=== PATIENT | female | born 1975 | race Caucasian/White ===

== ENCOUNTER 2022-03-17 10:22 | Outpatient (REF) | payer BC, SELFPAY ==
--- NOTE | ~2022-03-17 | MM_ITS ---
EXAMINATION: MM SCREENING DIGITAL BREAST TOMOSYNTHESIS, BILATERAL CLINICAL INFORMATION: Screening. Asymptomatic. The lifetime risk of breast cancer based on the Tyrer-Cuzick Model is 6%. COMPARISON: Mammography: 03/21/2020, 10/18/2018, 09/09/2017 TECHNIQUE: Digital breast tomosynthesis is performed in both the craniocaudal and mediolateral oblique views along with computer-aided detection (CAD). Synthesized 2D images are generated from the tomosynthesis. FINDINGS: There are scattered areas of fibroglandular density (ACR BI-RADS breast composition Category b). There are no significant masses, abnormal calcifications, or other abnormalities. Parenchymal pattern is similar to prior studies. Breast tissue composition borders on heterogeneously dense. The axilla and skin contours are unremarkable. There are some grouped dermal calcifications again seen mid lower inner right breast. MM/MM tomosynthesis screening BI IMPRESSION: No mammographic evidence of malignancy. ASSESSMENT: BI-RADS 2: Benign RECOMMENDATION: Routine annual mammography screening. This patient's information was entered into a reminder system with a target due date for their next mammogram.
== END 2022-03-17 10:23 | disposition home or self-care (01) ==
LOC: HO.MAMMO 10:22
PROVIDERS: PCP Internal Medicine; Visit Provider Internal Medicine
DX: Z12.31 Encounter for screening mammogram for malignant neoplasm of breast (principal)
CPT/HCPCS: 77063; 77067

== ENCOUNTER 2022-08-06 | Outpatient (REF) | payer BC, SELFPAY | END 2022-08-06 00:01 | disposition home or self-care (01) | LOC: HO.LNP | PROVIDERS: Visit Provider Emergency Medicine | DX: R30.0 Dysuria (principal) | CPT/HCPCS: 87086; 87088; 87186 ==

== ENCOUNTER 2022-08-27 09:34 | Outpatient (REF) | payer BC, SELFPAY ==
[2022-08-27 11:16] LABS: MANUAL DIFF FLAG NO
[2022-08-27 11:24] LABS: Basophils Absolute Auto 0.1 X10*3/uL (0.0-0.2); Basophils Percent Auto 0.9 % (0-2); Eosinophils Absolute Auto 0.2 X10*3/uL (0.0-0.4); Eosinophils Percent Auto 2.7 % (0-4); Imm Gran Abs Auto 0.02 X10*3/uL (0.00-0.03); Imm Gran Pct Auto 0.3 % (0.0-0.4); Lymphocytes Absolute Auto 1.3 X10*3/uL (1.2-4.9); Lymphocytes Percent Auto 21.9 % (20-40); Mean Corpuscular Volume 69.9 fL (80.0-98.0); Mean Platelet Volume 10.4 fL (9.4-12.3); Monocytes Absolute Auto 0.4 X10*3/uL (0.1-1.2); Monocytes Percent Auto 7.4 % (2-11); Neutrophils Absolute Auto 3.9 x10*3/uL (2.0-8.3); Neutrophils Percent Auto 66.8 % (45-73); Platelet Count 333 X10*3/uL (160-400); Red Blood Count 4.29 X10*6/uL (4.20-5.50); Red Cell Distribution Width 17.4 % (11.0-16.0); White Blood Count 5.8 X10*3/uL (4.8-10.8)
[2022-08-27 11:39] LABS: Appearance Urine Clear; Color Urine Yellow; Glucose Urine UA Negative (Negative); Leukocyte Esterase Urine Negative (Negative); Nitrite Urine Negative (Negative); Specific Gravity - Urine >= 1.030 (1.005-1.025); Urine Blood Negative (Negative); Urine Ketones Negative (Negative); Urine Protein Negative (Neg-Trace)
[2022-08-27 12:01] LABS: Anion Gap 11 (12-20); Blood Urea Nitrogen 13 mg/dL (9-16); Calcium 8.9 mg/dL (8.4-10.2); Carbon Dioxide 23 mmol/L (22-29); Chloride 108 mmol/L (96-108); Cholesterol 158 mg/dL; Estimated Glomerular Filt Rate > 60; Glucose Fasting 101 mg/dL (60-99); HDL Cholesterol 40 mg/dL; LDL Cholesterol Calculated 95 mg/dl; Potassium 4.2 mmol/L (3.3-5.1); Sodium 138 mmol/L (135-145); Triglycerides 119 mg/dL
== END 2022-08-27 09:35 | disposition home or self-care (01) ==
LOC: HO.HMGCLDS 09:34
PROVIDERS: PCP Internal Medicine; Visit Provider Internal Medicine
DX: Z00.01 Encounter for general adult medical examination with abnormal findings (principal)
CPT/HCPCS: 36415; 80048; 80061; 81003; 82306; 84443; 85025

== ENCOUNTER 2023-03-14 09:10 | Outpatient (REF) | payer BC, SELFPAY ==
[2023-03-14 12:00] LABS: MANUAL DIFF FLAG NO
[2023-03-14 12:16] LABS: Basophils Absolute Auto 0.1 X10*3/uL (0.0-0.2); Basophils Percent Auto 0.9 % (0-2); Eosinophils Absolute Auto 0.1 X10*3/uL (0.0-0.4); Eosinophils Percent Auto 1.4 % (0-4); Hematocrit 35.9 % (37.0-47.0); Hemoglobin 12.1 g/dl (12.0-16.0); Imm Gran Abs Auto 0.02 X10*3/uL (0.00-0.03); Imm Gran Pct Auto 0.3 % (0.0-0.4); Lymphocytes Absolute Auto 1.3 X10*3/uL (1.2-4.9); Lymphocytes Percent Auto 19.1 % (20-40); Mean Corpuscular HGB Conc 33.7 g/dl (31.0-35.0); Mean Corpuscular Volume 80.1 fL (80.0-98.0); Monocytes Absolute Auto 0.7 X10*3/uL (0.1-1.2); Monocytes Percent Auto 9.3 % (2-11); Neutrophils Absolute Auto 4.9 x10*3/uL (2.0-8.3); Platelet Count 294 X10*3/uL (160-400); Red Blood Count 4.48 X10*6/uL (4.20-5.50); Red Cell Distribution Width 17.8 % (11.0-16.0)
[2023-03-14 12:37] LABS: Iron 50 mcg/dL (30-160); Percent Iron Saturation 14 % (15-50); Total Iron Binding Capacity 363 mcg/dL (228-428); Unsaturated Iron Binding 313 ug/dL
[2023-03-14 12:59] LABS: Vitamin D 25-OH Total 49.9 ng/mL (>30)
== END 2023-03-14 09:11 | disposition home or self-care (01) ==
LOC: HO.HMGCLDS 09:10
PROVIDERS: PCP Internal Medicine; Visit Provider Internal Medicine
DX: D50.9 Iron deficiency anemia, unspecified (principal); E55.9 Vitamin D deficiency, unspecified
CPT/HCPCS: 36415; 82306; 83540; 85025

== ENCOUNTER 2023-03-18 13:04 | Outpatient (AMB) | payer BC, SELFPAY ==
[2023-03-18 13:09] VITALS: BP 102/62; PULSE 87; O2SAT 98; BMI 31.5
--- NOTE | 2023-03-18 13:09 | MHC.PC.OV ---
Vital Signs 03/18/23 13:09 Height 4 ft 11 in Weight 156 lb BMI 31.5 BP 102/62 Blood Pressure Location Lt brachial Position Sitting Pulse 87 Pulse Source Pulse Oximeter Pulse Oximetry (%) 98 Intake Visit Reasons: f/u anemia Intake Note: pt is here for f/u anemia Allergies codeine Allergy (Unknown, Verified 03/18/23 13:14) hives dextromethorphan Allergy (Unknown, Verified 03/18/23 13:14) hives, jumpy legs diphenhydramine [From Benadryl] Allergy (Unknown, Verified 03/18/23 13:14) hives, swelling throat Codeine Phosphate Allergy (Unknown, Uncoded 03/18/23 13:14) hives Benadryl Adverse Reaction (Unknown, Uncoded 03/18/23 13:14) hives , swelling throat Decongestant Adverse Reaction (Unknown, Uncoded 03/18/23 13:14) hives Medication List - Last Reconciled 03/18/23 by Staci Warren MD cholecalciferol (vitamin D3) 50 mcg PO DAILY docusate sodium 100 mg PO DAILY ferrous sulfate 325 mg PO DAILY Tobacco use date assessed: 12/17/22 Dental Screening Dental Screen Date: 03/18/23 Did you have a dental visit in the last 12 months?: Yes Did you have a dental problem in the last 6 months where you did not have access to dental care?: No Was dental information given to patient?: Patient has dentist HPI f/u anemia HPI Details 47-year-old lady with microcytic hyperchromic anemia, here today for follow-up. Has been taking her iron, forgets to take her dose sometimes, complaining of constipation when taking it. Her latest labs however showed marked improvement in her iron levels and resolution of anemia. Still having heavy periods specially during the 1st couple of days, but denies any abdominal cramping during her cycle. She has been feeling well with no complaints of headache, no lightheadedness, no shortness of breath, fatigue or chest pain [facility] Medical History (Updated 03/21/23 @ 01:54 by Staci Warren MD) Hallux valgus (acquired), left foot History of anemia History of vitamin D deficiency Obesity Plantar fasciitis, right Subcutaneous nodules Vitamin D deficiency Surgical History History of foot surgery Family History Father Arthritis Substance use disorder Mother Skin cancer Fibromyalgia Substance use disorder Maternal Grandmother Fibromyalgia Skin cancer Alzheimer's disease Dementia Maternal Grandfather No problems noted. Paternal Grandfather No problems noted. Maternal Aunt Fibromyalgia Skin cancer Breast cancer Ovarian cancer Brother Substance use disorder Brother Substance use disorder Daughter No problems noted. Social History Housing: House Alcohol intake: never Patient Tobacco Use Status: Former Tobacco user e-Cigarette/Vaping Use: Never Used service: No Current occupational status: employed Cognitive needs: No Hearing needs: No Vision needs: Yes Female Reproductive History Menstrual Age of Menarche: 17 Questionnaire Thrive Questionnaire Date Thrive assessed: 08/24/22 BONY-7 AMB Questionnaire BONY-7 Date BONY - 7 assessed: 08/24/22 Source: Developed by Drs. Anthony Martins, Sinai Costello, Huber Aleman and colleagues, with an educational mi from [employer]. Review of Systems Const Reports no additional complaints Eyes Reports no additional complaints ENT Reports no additional complaints Resp Reports no additional complaints GI Reports as per HPI and Reports no additional complaints Reports no additional complaints Neuro Reports no additional complaints Physical exam (Primary Care) Vital Signs: Last Vital Signs Pulse 87 03/18/23 13:09 BP 102/62 03/18/23 13:09 Pulse Ox 98 03/18/23 13:09 BMI result Body Mass Index 31.5 Tobacco/Smoking Status: Tobacco use Status Tobacco use date assessed 12/17/22 03/18/23 13:10 Patient Tobacco Use Status Former Tobacco user 03/18/23 13:10 e-Cigarette/Vaping Use Never Used 03/18/23 13:10 Thrive Assessment: Date of Thrive Assessment Date Thrive assessed 08/24/22 03/18/23 13:10 Const General: comfortable and alert Nutritional Appearance: obese Orientation/consciousness: patient oriented x3 HENMT Head: Yes normocephalic Ears: external ears normal Face and sinus: Yes face symmetric Mouth: Normal oral and palatal mucosa present and moist mucous membranes Eyes General: appearance normal, both eyes and all related structures Neck Neck: Yes full ROM, Yes no lymphadenopathy and Yes supple Thyroid: Thyroid normal Chest Breast/axilla palpation: normal palpation of the breasts Resp Effort & Inspection: normal respiratory effort and able to speak in complete sentences Auscultation: clear to auscultation bilaterally Cardio Rate: regular rate Rhythm: regular rhythm Heart sounds: S1 normal heart sound present and S2 normal heart sound present GI Palpation (GI): Soft to palpation, nontender, no guarding and no masses Auscultation: normal bowel sounds Neuro General: patient oriented x3, gait normal, moves all extremities, no focal motor deficits and CN's II-XI intact bilaterally Extrem General: Yes full ROM, Yes no clubbing, cyanosis or edema and Yes normal gait Results Reviewed Results Reviewed: ENTERED: 03/14/23 ZULAY CANTRELL: ORDERED: CBC Auto Diff Test Result Flag Reference Site WBC 7.0 4.8-10.8 X10*3/uL RBC 4.48 4.20-5.50 X10*6/uL HGB 12.1 # 12.0-16.0 g/dl HCT 35.9 L 37.0-47.0 % MCV 80.1 80.0-98.0 fL MCH 27.0 27.0-33.0 pg MCHC 33.7 31.0-35.0 g/dl RDW 17.8 H 11.0-16.0 % PLT 294 160-400 X10*3/uL MPV 11.0 9.4-12.3 fL Neut Pct Auto 69.0 45-73 % ImGran Pct Auto 0.3 0.0-0.4 % Lymp Pct Auto 19.1 L 20-40 % Webb Pct Auto 9.3 2-11 % Eos Pct Auto 1.4 0-4 % Baso Pct Auto 0.9 0-2 % NRBC Pct Auto 0.0 0.0-0.2 /100WBC ANC Neut Abs # 4.9 2.0-8.3 x10*3/uL ImGran Abs Auto 0.02 0.00-0.03 X10*3/uL Lymph Abs Auto 1.3 1.2-4.9 X10*3/uL Webb Abs Auto 0.7 0.1-1.2 X10*3/uL Eos Abs Auto 0.1 0.0-0.4 X10*3/uL Baso Abs Auto 0.1 0.0-0.2 X10*3/uL NRBC Abs Auto 0.000 0.0-0.012 X10*3/uL Laboratory Tests 08/27/22 03/14/23 03/14/23 09:42 09:18 09:18 WBC 5.8 7.0 Hgb 9.0 L 12.1 D Hct 30.0 L 35.9 L MCV 69.9 L 80.1 MCH 21.0 L 27.0 MCHC 30.0 L 33.7 RDW 17.4 H 17.8 H Plt Count 333 294 Iron 50 TIBC 363 % Saturation 14 L Unsat Iron Binding 313 25-OH Vitamin D Total 49.9 Assessment and Plan Assessment & Plan (1) History of anemia: Code(s): Z86.2 - Personal history of diseases of the blood and blood-forming organs and certain disorders involving the immune mechanism Plan: Recent lab results discussed with patient with marked improvement in her iron levels and resolution of anemia, continue with taking iron supplements, and continue taking iron rich foods in her diet. May take [id number] Colace for constipation (2) History of vitamin D deficiency: Code(s): Z86.39 - Personal history of other endocrine, nutritional and metabolic disease Plan: Recent labs showed vitamin-D levels now within normal limits, continue taking [id number] vitamin-D 3 at 2000 units daily especially during the winter time. Coding Level of Care Code Est Pt Level 3 (54559) Diagnoses History of anemia Z86.2 History of vitamin D deficiency Z86.39
== END 2023-03-18 14:35 | disposition home or self-care (01) ==
PROVIDERS: PCP Internal Medicine; Visit Provider Internal Medicine
DX: Z86.2 Personal history of diseases of the blood and blood-forming organs and certain disorders involving the immune mechanism (principal); Z86.39 Personal history of other endocrine, nutritional and metabolic disease
CPT/HCPCS: 99213

== ENCOUNTER → 2023-04-21 08:00 | Outpatient (BNV) | payer BC, SELFPAY | PROVIDERS: PCP Internal Medicine; Visit Provider Radiology Diagnostic Radiology | DX: Z12.31 Encounter for screening mammogram for malignant neoplasm of breast (principal) | CPT/HCPCS: 77063; 77067 ==

== ENCOUNTER 2023-04-21 08:02 | Outpatient (REF) | payer BC, SELFPAY | END 2023-04-21 08:03 | disposition home or self-care (01) | LOC: HO.MAMMO 08:02 | PROVIDERS: PCP Internal Medicine; Visit Provider Internal Medicine | DX: Z12.31 Encounter for screening mammogram for malignant neoplasm of breast (principal) | CPT/HCPCS: 77063; 77067 ==

== ENCOUNTER 2023-07-11 15:33 | Outpatient (AMB) | payer BC, SELFPAY ==
--- NOTE | 2023-07-11 15:41 | AM.OFFWIN_ITS ---
Intake Vital Signs 07/11/23 15:48 Height 4 ft 11 in Weight 71.668 kg BMI 31.9 BP 100/70 Pulse 89 Pulse Source Pulse Oximeter Temp 97.2 F Temp Source Temporal Artery Scan Pulse Oximetry (%) 99 Oxygen Delivery Method Room Air Intake Visit Reasons: EST/came in contact w covid + ([id number]) Intake Note: pt is here today for Uti, rash, came in contact w covid Patient Tobacco Use Status: Former Tobacco user Allergies codeine Allergy (Unknown, Verified 07/11/23 15:56) hives dextromethorphan Allergy (Unknown, Verified 07/11/23 15:56) hives, jumpy legs diphenhydramine [From Benadryl] Allergy (Unknown, Verified 07/11/23 15:56) hives, swelling throat Codeine Phosphate Allergy (Unknown, Uncoded 03/18/23 13:14) hives Benadryl Adverse Reaction (Unknown, Uncoded 03/18/23 13:14) hives , swelling throat Decongestant Adverse Reaction (Unknown, Uncoded 03/18/23 13:14) hives Do you need a note to return to daycare/school/sports/work: Yes HPI HPI Comments History of Present Illness Details 1801 48-year-old female presents with urinary frequency, urgency and burning on urination for the past few days also reporting a rash that started yesterday diffuse throughout her entire body, itchy. Denies new medications, new detergents, lotions. No known allergies to anything but medication. Patient also requesting to be COVID tested she was exposed to COVID-19 and would like to be sure that she does not have it. No concerns for or STDs. Denies chest pain, shortness of breath, fevers, chills, nausea, vomiting, abdominal pain. Physical exam diffuse urticaria throughout entire body sparing palms and soles. History and physical exam concerning for possible UTI versus cystitis with possible viral illness. Rash could be viral rash versus allergies. No signs of anaphylaxis. Unlikely syphilis, [id number]-[id number], ACS, pyelo, obstructing uropathy, pulmonary embolism, pneumonia, pneumothorax, acute respiratory distress Plan at this time viral testing for COVID, UTI testing. Will send prednisone for rash. Educated patient on diagnosis and treatment plan, answered all question, patient verbalizes understanding. At this time patient will be discharged home, advised to return with new or worsening symptoms. Educated on worrisome signs and symptoms and when to return. At this time I feel comfortable discharge home. Patient's urine infected. I also had a long conversation with patient and will send her home with an EpiPen, unclear right patient is allergic to, educated her on proper uses for EpiPen how to use it and if she uses it she should seek medical attention immediately. [facility] Medical History History of vitamin D deficiency History of anemia Vitamin D deficiency Plantar fasciitis, right Hallux valgus (acquired), left foot Obesity Subcutaneous nodules Surgical History History of foot surgery Family History Father Arthritis Substance use disorder Mother Skin cancer Fibromyalgia Substance use disorder Maternal Grandmother Fibromyalgia Skin cancer Alzheimer's disease Dementia Maternal Grandfather No problems noted. Paternal Grandfather No problems noted. Maternal Aunt Fibromyalgia Skin cancer Breast cancer Ovarian cancer Brother Substance use disorder Brother Substance use disorder Daughter No problems noted. Social History Housing: House Alcohol intake: never Patient Tobacco Use Status: Former Tobacco user e-Cigarette/Vaping Use: Never Used service: No Current occupational status: employed Cognitive needs: No Hearing needs: No Vision needs: Yes Female Reproductive History Menstrual Age of Menarche: 17 Review of Systems Const Details: Constitutional : No Weight loss, No Fever, No Chills, No Fatigue, No Malaise ENT/Mouth : No sore throat, No Rhinorrhea Eyes: No Eye Pain, No Swelling, No Redness Cardiovascular : No Chest Pain, No SOB, No Dyspnea on Exertion, No Orthopnea, No Edema, No Palpitations Respiratory : No Cough, No Sputum, No Wheezing Gastrointestinal : No Nausea, No Vomiting, No Diarrhea, No Constipation, No abdominal Pain, No Hematochezia, No Melena Genitourinary : + Dysuria, + Urinary Frequency, No Hematuria, Musculoskeletal : No joint pain, No Myalgias, No Joint Swelling Skin : No Skin Lesions, + rash Neuro : No Weakness, No Numbness, No Dizziness, No Headache Psych : No Anxiety/Panic, No Depression All other systems reviewed and are negative All systems reviewed & are unremarkable except as noted in HPI and below Physical Exam Vital Signs: Last Vital Signs Temp 97.2 F 07/11/23 15:48 Pulse 89 07/11/23 15:48 BP 100/70 07/11/23 15:48 Pulse Ox 99 07/11/23 15:48 Oxygen Delivery Method Room Air 07/11/23 15:48 BMI result Body Mass Index 31.9 vss Appearance: Alert.? Oriented X3.? No acute distress.? Head: Normocephalic, atraumatic, no step-offs or deformities Eyes: Pupils equal, round and reactive to light.? Neck: Normal inspection.? Neck supple.? Throat: Patent speaking in full sentences controlling secretions well. CVS: Normal heart rate and rhythm.? Pulses normal.? Respiratory: No respiratory distress.? Breath sounds normal.? Abdomen: Soft and nontender.? Skin: Skin warm and dry.? Normal skin color.? Normal skin turgor.?diffuse urticaria throughout entire body sparing palms and soles. Extremities: No lower extremity edema.? No calf ttp. 5/5 strength to bilateral upper and lower extremities Neuro: Oriented X 3.? No motor deficit.? No sensory deficit. CN 2-12 intact Results AMB Urinalysis, Automated UA Leukoctes 125 Nevin/uL Last Edit by Jose Moore CMA on 07/11/23 15:5 4 UA Nitrite Positive Last Edit by Jose Moore CMA on 07/11/23 15:54 UA Urobilinogen 0.2 mg/dL Last Edit by Jose Moore CMA on 07/11/23 15 :54 UA Protein 15 mg/dL Last Edit by Jose Moore CMA on 07/11/23 15:54 UA pH 6.0 Last Edit by Jose Moore CMA on 07/11/23 15:54 UA Blood 200 Praveen/uL Last Edit by Jose Moore CMA on 07/11/23 15:54 UA Specific [place] 1.010 Last Edit by Jose Moore CMA on 07/11/23 15:54 UA Ketone Positive Last Edit by Jose Moore CMA on 07/11/23 15:54 UA Bilirubin 0 mg/dL Last Edit by Jose Moore CMA on 07/11/23 15:54 UA Glucose 0 mg/dL Last Edit by Jose Moore CMA on 07/11/23 15:54 Results Reviewed Results Reviewed: Laboratory Last Values Urine pH (Auto) 6.0 07/11/23 15:53 Specific [place] (Auto) 1.010 07/11/23 15:53 Urine Protein (Auto) 15 mg/dL 07/11/23 15:53 Glucose (UA)(Auto) 0 mg/dL 07/11/23 15:53 Urine Ketones (Auto) Positive 07/11/23 15:53 Urine Blood (Auto) 200 Praveen/uL 07/11/23 15:53 Urine Nitrite (Auto) Positive 07/11/23 15:53 Urine Bilirubin (Auto) 0 mg/dL 07/11/23 15:53 Urine Urobilinogen (Auto) 0.2 mg/dL 07/11/23 15:53 Leukocyte Esterase (Auto) 125 Nevin/uL 07/11/23 15:53 Assessment & Plan Assessment & Plan (1) Exposure to COVID-19 virus: Code(s): Z20.822 - Contact with and (suspected) exposure to COVID-19 (2) Rash: Code(s): R21 - Rash and other nonspecific skin eruption (3) Urinary tract infection: Code(s): N39.0 - Urinary tract infection, site not specified Plan Take your medications as prescribed. If you were prescribed antibiotics today, it is important that you take your medication to their entirety, do not skip any doses, do not finish them early. Follow-up with your primary care provider this week. Return to the emergency department with new or worsening symptoms. Such as fevers, chills, chest pain, shortness of breath, nausea, vomiting, dizziness, headache, vision changes, lethargy In case of emergency call 911 Orders: Orders AMB Urinalysis Automated Today Z13.9 - Encounter for screening, unspecified SARS-CoV2/FLU/RSV Today B34.9 - Viral infection, unspecified BinaxNOW Covid-19 Ag Today Z20.822 - Contact with and (suspected) exposure to COVID-19 SARS-CoV2/FLU/RSV Today R09.89 - Other specified symptoms and signs involving the circulatory and respiratory systems Medications: New prednisone 40 mg (2 x 20 mg) PO DAILY 10 tabs 0RF 5 days cefuroxime axetil 250 mg PO BID 14 tabs 0RF 7 days epinephrine (EpiPen 2-Marques) 0.3 mg (0.3 mL) IM Q4H PRN 2 ea 0RF anaphylaxis Coding Level of Care Code Est Pt Level 3 (66050) Diagnoses Exposure to COVID-19 virus Z20.822 Rash R21 Urinary tract infection N39.0
[2023-07-11 15:48] VITALS: BP 100/70; PULSE 89; TEMP 36.2; O2SAT 99; BMI 31.9
== END 2023-07-11 16:04 | disposition home or self-care (01) ==
PROVIDERS: PCP Internal Medicine; Visit Provider Physician Assistant
DX: R21 Rash and other nonspecific skin eruption (principal); N39.0 Urinary tract infection, site not specified; Z20.822 Contact with and (suspected) exposure to COVID-19; R35.0 Frequency of micturition
CPT/HCPCS: 81003; 99213

== ENCOUNTER 2023-07-11 15:53 | Outpatient (REF) | payer BC, SELFPAY ==
[2023-07-12 12:27] LABS: Influenza A PCR NEGATIVE (Negative); Influenza B PCR NEGATIVE (Negative); Resp Syncy Virus RNA Qual PCR NEGATIVE (Negative); SARS COV2 PCR INHOUSE NEGATIVE (Negative)
== END 2023-07-11 15:54 | disposition home or self-care (01) ==
LOC: HO.LNP 15:53
PROVIDERS: Visit Provider Physician Assistant
DX: Z11.52 Encounter for screening for COVID-19 (principal); Z20.822 Contact with and (suspected) exposure to COVID-19; R09.89 Other specified symptoms and signs involving the circulatory and respiratory systems
CPT/HCPCS: 0241U

== ENCOUNTER 2024-02-09 09:36 | Outpatient (AMB) | payer BC, SELFPAY ==
[2024-02-09 09:41] VITALS: BP 100/62; PULSE 87; O2SAT 97; BMI 29.5
--- NOTE | 2024-02-09 09:41 | A.OFFPC_ITS ---
Vital Signs 02/09/24 09:41 Height 4 ft 11 in Weight 146 lb BMI 29.5 BP 100/62 Blood Pressure Location Rt brachial Position Sitting Pulse 87 Pulse Source Pulse Oximeter Pulse Oximetry (%) 97 Oxygen Delivery Method Room Air Intake Visit Reasons: PE Intake Note: Pt is here today for her PE: Last mammogram 04/21/23, Papsmear 01/23/19 Is last menstrual period known: Yes Last menstrual period: 01/27/24 Allergies codeine Allergy (Unknown, Verified 02/09/24 10:11) hives dextromethorphan Allergy (Unknown, Verified 02/09/24 10:11) hives, jumpy legs diphenhydramine [From Benadryl] Allergy (Unknown, Verified 02/09/24 10:11) hives, swelling throat Codeine Phosphate Allergy (Unknown, Uncoded 02/09/24 10:11) hives Benadryl Adverse Reaction (Unknown, Uncoded 02/09/24 10:11) hives , swelling throat Decongestant Adverse Reaction (Unknown, Uncoded 02/09/24 10:11) hives Medication List - Last Reconciled 02/09/24 by Staci Warren MD cholecalciferol (vitamin D3) 50 mcg PO DAILY epinephrine (EpiPen 2-Marques) 0.3 mg (0.3 mL) IM Q4H PRN ferrous sulfate 325 mg PO DAILY semaglutide 2 mg subcut QWEEK Tobacco use date assessed: 02/09/24 Dental Screening Dental Screen Date: 02/09/24 Did you have a dental visit in the last 12 months?: Yes Did you have a dental problem in the last 6 months where you did not have access to dental care?: Yes Was dental information given to patient?: Patient has dentist HPI PE HPI Details 48-year-old lady here today for physical exam. She is up-to-date with her breast cancer screening, last mammogram was done 04/21/23 and has an appointment already scheduled for her next mammogram 05/03/2024 . She is up-to-date with her cervical cancer screening, last Papsmear done 01/23/19. Has anemia, currently on ferrous sulfate taken once a day. Was having some urinary discomfort, accompanied by lower abdominal pain and cloudy urine, self medicated with penicillin, now feels better. Would like to have urine checked to make sure everything is clear, and requesting a prescription for fluconazole to take as needed for possible development of yeast infection after taking antibiotics, She has been taking semaglutide, self injecting once a week, prescribed by [employer]. Has lost significant amount of weight, goal weight is 135 lb, has been compliant with her diet and exercises regularly denies any adverse effects from semaglutide. [facility] Medical History (Updated 02/09/24 @ 10:43 by Staci Warren MD) Overweight (BMI 25.0-29.9) History of vitamin D deficiency History of anemia Vitamin D deficiency Hallux valgus (acquired), left foot Subcutaneous nodules Surgical History History of foot surgery Family History Father Arthritis Substance use disorder Mother Skin cancer Fibromyalgia Substance use disorder Maternal Grandmother Fibromyalgia Skin cancer Alzheimer's disease Dementia Maternal Grandfather No problems noted. Paternal Grandfather No problems noted. Maternal Aunt Fibromyalgia Skin cancer Breast cancer Ovarian cancer Brother Substance use disorder Brother Substance use disorder Daughter No problems noted. Social History Housing: House Alcohol intake: never Patient Tobacco Use Status: Former Tobacco user e-Cigarette/Vaping Use: Never Used service: No Current occupational status: employed Cognitive needs: No Hearing needs: No Vision needs: Yes Female Reproductive History Menstrual Age of Menarche: 17 Date of last menstrual period: 01/27/24 Questionnaire PHQ-9 Over the last 2 weeks, how often have you been bothered by any of the following problems? 1. Little interest or pleasure in doing things: not at all 2. Feeling down, depressed, or hopeless: not at all 3. Trouble falling or staying asleep, or sleeping too much: not at all 4. Feeling tired or having little energy: not at all 5. Poor appetite or overeating: not at all 6. Feeling bad about yourself - or that you are a failure or have let yourself or your family down: not at all 7. Trouble concentrating on things, such as reading the newspaper or watching television: not at all 8. Moving or speaking so slowly that other people could have noticed. Or the opposite - being so fidgety or restless that you have been moving around a lot more than usual: not at all 9. Thoughts that you would be better off or of hurting yourself in some way: not at all Total score: 0 Depression Screening Interpretation: Negative Depression Screening Done: Yes 38991 - PHQ-9 Billing: Yes Source: Developed by Drs. Anthony Martins, Sinai Costello, Huber Aleman and colleagues, with an educational mi from [employer]. Thrive Questionnaire Date Thrive assessed: 02/09/24 I am a: Patient What is your living situation today?: I have a steady place to live Within the past 12 months, did the food you bought not last and you didn't have the money to get more?: Never true Within the past 12 months, did you worry whether your food would run out before you got money to buy more?: Never true Do you have trouble paying for medicines?: No Do you have trouble getting transportation to medical appointments?: No Do you have trouble paying your heating and electricity bill?: No Do you have trouble taking care of your child, family member or friend?: No Do you have trouble with day-to-day activities such as bathing, preparing meals, shopping, managing finances, etc.?: No Are you currently unemployed and looking for a job?: No Are you interested in more education?: No THRIVE Score: 0 AUDIT C Alcohol Use Questionnaire (AUDIT-C) 1. How often do you have a drink containing alcohol?: Monthly or less 2. How many drinks containing alcohol do you have on a typical day when you are drinking?: 1 or 2 3. How often do you have six or more drinks on one occasion?: Never Total Score: 1 BONY-7 AMB Questionnaire OBNY-7 Date BONY - 7 assessed: 02/09/24 Feeling nervous, anxious, or on edge: 0 = Not at all Not being able to stop or control worryin = Not at all Worrying too much about different things: 0 = Not at all Trouble relaxin = Not at all Being so restless that it is hard to sit still: 0 = Not at all Becoming easily annoyed or irritable: 0 = Not at all Feeling afraid as if something awful might happen: 0 = Not at all Total BONY-7 score (0-4 normal; 5-9 mild; 10-14 moderate; 15-21 severe): 0 Source: Developed by Drs. Anthony Martins, Sinai Costello, Huber Aleman and colleagues, with an educational mi from [employer]. BONY-7 Assessment Billing BONY-7 Assessment Tool: BONY-7 Assessment 05239 Review of Systems Const Reports no additional complaints Eyes Reports no additional complaints ENT Reports no additional complaints Card Denies chest pain, Denies irregular heart rhythm and Denies lightheadedness Resp Reports no additional complaints GI Denies abdominal pain, Denies melena, Denies bloating, Denies hematochezia, Denies change in bowel habits, Denies heartburn and Denies nausea Details: Heavy menstrual bleed, last 3-5 days Musc Reports no additional complaints Skin/Breast Denies breast swelling, Denies breast pain, Denies breast mass and Denies rash Neuro Reports no additional complaints Psych Reports no additional complaints Endo Reports no additional complaints Evaristo/Lymph Reports no additional complaints Aller/Immun Reports no additional complaints Physical exam (Primary Care) Vital Signs: Last Vital Signs Pulse 87 02/09/24 09:41 BP 100/62 02/09/24 09:41 Pulse Ox 97 02/09/24 09:41 Oxygen Delivery Method Room Air 02/09/24 09:41 BMI result Body Mass Index 29.5 Tobacco/Smoking Status: Tobacco use Status Tobacco use date assessed 02/09/24 02/09/24 09:42 Patient Tobacco Use Status Former Tobacco user 02/09/24 09:42 e-Cigarette/Vaping Use Never Used 02/09/24 09:42 PHQ-9: PHQ-9 Score PHQ-9: Total score 0 02/09/24 10:12 Depression Screening Interpretation: Negative Thrive Assessment: Date of Thrive Assessment Date Thrive assessed 02/09/24 02/09/24 09:51 Const General: comfortable and alert Orientation/consciousness: patient oriented x3 HENMT Head: Yes normocephalic Ears: external ears normal Face and sinus: Yes face symmetric Mouth: Normal oral and palatal mucosa present and moist mucous membranes Eyes General: appearance normal, both eyes and all related structures Neck Other: Nonpalpable thyroid gland Neck: Yes full ROM, Yes no lymphadenopathy and Yes supple Chest Breast/axilla palpation: normal palpation of the breasts Resp Effort & Inspection: normal respiratory effort and able to speak in complete sentences Auscultation: clear to auscultation bilaterally Cardio Rate: regular rate Rhythm: regular rhythm Heart sounds: S1 normal heart sound present and S2 normal heart sound present GI Palpation (GI): Soft to palpation, nontender, no guarding and no masses Auscultation: normal bowel sounds General: Yes no CVA tenderness and Yes deferred Back/Spine/Pelvis Back: no CVA tenderness and No back tenderness Skin Other: Slightly fluctuant, nontender mass under right costal margin Neuro General: patient oriented x3, gait normal, moves all extremities, no focal motor deficits and CN's II-XI intact bilaterally Extrem General: Yes full ROM, Yes no clubbing, cyanosis or edema and Yes normal gait Psych Appearance: grossly normal and well kempt Mental Status: mental status grossly normal Speech and movement: Normal speech and movement present Affect: normal affect Thought process: Normal thought process present Thought content: Normal thought content present Assessment and Plan Assessment & Plan (1) Annual visit for general adult medical examination with abnormal findings: Code(s): Z00.01 - Encounter for general adult medical examination with abnormal findings Plan: Will check appropriate labs. Continue regular dental visit every 6 months and regular eye exams, at least every 2 years. Take adequate calcium in diet and vitamin-D 3 at 2000 IU per cap once a day, in addition to weight-bearing exercises to help maintain good muscle tone and weight control. Instructed to do self-breast exam, and continue with yearly mammogram, already scheduled for this year. Reminded to get her appointment with her OB Dr. Hammond for her cervical cancer screening and pelvic exam. She declines getting COVID vaccinations or flu vaccine, up-to-date with her Tdap. Cologuard testing ordered for colon cancer screening (2) History of anemia: Code(s): Z86.2 - Personal history of diseases of the blood and blood-forming organs and certain disorders involving the immune mechanism Plan: Still has heavy menstrual bleeding, Repeat CBC, iron profile ordered, continue on ferrous sulfate 325 mg once daily (3) History of vitamin D deficiency: Code(s): Z86.39 - Personal history of other endocrine, nutritional and metabolic disease Plan: Will check vitamin-D (4) Encounter for screening for diabetes mellitus: Code(s): Z13.1 - Encounter for screening for diabetes mellitus Plan: Fasting blood sugar ordered (5) Right upper quadrant abdominal mass: Code(s): R19.01 - Right upper quadrant abdominal swelling, mass and lump Plan: Referred to general surgery for evaluation and possible excision of right upper quadrant abdominal mass (6) History of dysuria: Code(s): Z87.898 - Personal history of other specified conditions Plan: She had some lower abdominal discomfort and cloudy urine with frequency, slight discomfort on urination, self medicated with penicillin, like to get urine check ed. Also requesting a prescription for fluconazole to take as needed for possible yeast infection that might be developing after she took antibiotics Orders: Orders Comprehensive [facility]. Panel Fast 02/09/24 Z00.01 - Encounter for general adult medical examination with abnormal findings, Z13.1 - Encounter for screening for diabetes mellitus, Z13.220 - Encounter for screening for lipoid disorders, Z86.2 - Personal history of diseases of the blood and blood-forming organs and certain disorders involving the immune mechanism, Z86.39 - Personal history of other endocrine, nutritional and metabolic disease Lipid Panel 02/09/24 Z00. - Encounter for general adult medical examination with abnormal findings, Z13.1 - Encounter for screening for diabetes mellitus, Z13.220 - Encounter for screening for lipoid disorders, Z86.2 - Personal history of diseases of the blood and blood-forming organs and certain disorders involving the immune mechanism, Z86.39 - Personal history of other endocrine, nutritional and metabolic disease Vitamin D 25-OH Total 02/09/24 Z00.01 - Encounter for general adult medical examination with abnormal findings, Z13.1 - Encounter for screening for diabetes mellitus, Z13.220 - Encounter for screening for lipoid disorders, Z86.2 - Personal history of diseases of the blood and blood-forming organs and certain disorders involving the immune mechanism, Z86.39 - Personal history of other endocrine, nutritional and metabolic disease Complete Blood Count Auto Diff 02/09/24 Z00. - Encounter for general adult medical examination with abnormal findings, Z13.1 - Encounter for screening for diabetes mellitus, Z13.220 - Encounter for screening for lipoid disorders, Z86.2 - Personal history of diseases of the blood and blood-forming organs and certain disorders involving the immune mechanism, Z86.39 - Personal history of other endocrine, nutritional and metabolic disease IRON PROFILE 02/09/24 Z00.01 - Encounter for general adult medical examination with abnormal findings, Z13.1 - Encounter for screening for diabetes mellitus, Z13.220 - Encounter for screening for lipoid disorders, Z86.2 - Personal history of diseases of the blood and blood-forming organs and certain disorders involving the immune mechanism, Z86.39 - Personal history of other endocrine, nutritional and metabolic disease UA CC w/rflx Micro + Cult 02/09/24 Z87.898 - Personal history of other specified conditions Referrals Cologuard Test Z12.11 - Encounter for screening for malignant neoplasm of colon, Z12.12 - Encounter for screening for malignant neoplasm of rectum General Surgery Referral R19.01 - Right upper quadrant abdominal swelling, mass and lump Medications: New fluconazole may repeat second dose 72 hrs after first dose if symptoms persist 150 mg PO Q3D PRN 2 tabs 0RF yeast infection Refilled ferrous sulfate 325 mg PO DAILY 90 tabs 1RF D50.9 - Iron deficiency anemia, unspecified Coding Level of Care Code Est Pt Prev Care 40-64y(33820) Diagnoses Annual visit for general adult medical examination with abnormal findings Z00.01 History of anemia Z86.2 History of vitamin D deficiency Z86.39 Encounter for screening for diabetes mellitus Z13.1 Right upper quadrant abdominal mass R19.01 History of dysuria Z87.898 Additional Codes BONY-7 Assessment Billing - BONY-7 Assessment Tool: BONY-7 Assessment 24419 ([id number])
== END 2024-02-09 10:39 | disposition home or self-care (01) ==
PROVIDERS: PCP Internal Medicine; Visit Provider Internal Medicine
DX: Z00.00 Encounter for general adult medical examination without abnormal findings (principal); Z86.2 Personal history of diseases of the blood and blood-forming organs and certain disorders involving the immune mechanism; Z86.39 Personal history of other endocrine, nutritional and metabolic disease; Z13.1 Encounter for screening for diabetes mellitus; R19.01 Right upper quadrant abdominal swelling, mass and lump; Z87.898 Personal history of other specified conditions
CPT/HCPCS: 99396

== ENCOUNTER 2024-02-09 10:40 | Outpatient (REF) | payer BC, SELFPAY ==
[2024-02-09 13:06] LABS: Appearance Urine Clear; Color Urine Yellow; Glucose Urine UA Negative (Negative); Leukocyte Esterase Urine Negative (Negative); Nitrite Urine Negative (Negative); PH 6.5 (5.0-9.0); Specific Gravity - Urine 1.015 (1.005-1.025); Urine Blood Negative (Negative); Urine Ketones Negative (Negative); Urine Protein Negative (Neg-Trace)
[2024-02-09 13:10] LABS: MANUAL DIFF FLAG NO
[2024-02-09 13:24] LABS: Basophils Absolute Auto 0.1 X10*3/uL (0.0-0.2); Basophils Percent Auto 0.7 % (0-2); Eosinophils Absolute Auto 0.1 X10*3/uL (0.0-0.4); Hematocrit 39.8 % (37.0-47.0); Hemoglobin 13.8 g/dl (12.0-16.0); Imm Gran Abs Auto 0.02 X10*3/uL (0.00-0.03); Imm Gran Pct Auto 0.3 % (0.0-0.4); Lymphocytes Absolute Auto 1.3 X10*3/uL (1.2-4.9); Lymphocytes Percent Auto 18.1 % (20-40); Mean Corpuscular HGB Conc 34.7 g/dl (31.0-35.0); Mean Corpuscular Hemoglobin 30.8 pg (27.0-33.0); Mean Corpuscular Volume 88.8 fL (80.0-98.0); Mean Platelet Volume 10.9 fL (9.4-12.3); Monocytes Absolute Auto 0.6 X10*3/uL (0.1-1.2); Neutrophils Absolute Auto 5.1 x10*3/uL (2.0-8.3); Neutrophils Percent Auto 71.9 % (45-73); Platelet Count 282 X10*3/uL (160-400); Red Blood Count 4.48 X10*6/uL (4.20-5.50); Red Cell Distribution Width 12.4 % (11.0-16.0); White Blood Count 7.1 X10*3/uL (4.8-10.8)
[2024-02-09 13:44] LABS: Alanine Aminotransferase 19 U/L (0-31); Albumin Level 4.3 g/dL (3.5-5.0); Alkaline Phosphatase 58 U/L (39-117); Anion Gap 11 (12-20); Aspartate Amino Transferase 20 U/L (5-31); Bilirubin Total 0.3 mg/dL (0.0-1.0); Blood Urea Nitrogen 10 mg/dL (9-16); Calcium 9.3 mg/dL (8.4-10.2); Carbon Dioxide 25 mmol/L (22-29); Chloride 106 mmol/L (96-108); Cholesterol 155 mg/dL (<200); Estimated Glomerular Filt Rate > 60; Glucose Fasting 84 mg/dL (60-99); HDL Cholesterol 50 mg/dL (>40); Iron 56 mcg/dL (30-160); LDL Cholesterol Calculated 81 mg/dL (<100); Percent Iron Saturation 19 % (15-50); Potassium 4.2 mmol/L (3.3-5.1); Sodium 138 mmol/L (135-145); Total Iron Binding Capacity 302 mcg/dL (228-428); Total Protein 6.9 g/dL (6.5-8.0); Triglycerides 124 mg/dL (<150); Unsaturated Iron Binding 246 ug/dL
[2024-02-09 14:00] LABS: Vitamin D 25-OH Total 60.2 ng/mL (>30)
== END 2024-02-09 10:41 | disposition home or self-care (01) ==
LOC: HO.HMGCLDS 10:40
PROVIDERS: PCP Internal Medicine; Visit Provider Internal Medicine
DX: Z00.01 Encounter for general adult medical examination with abnormal findings (principal); Z13.6 Encounter for screening for cardiovascular disorders; Z13.1 Encounter for screening for diabetes mellitus; Z13.220 Encounter for screening for lipoid disorders; Z87.898 Personal history of other specified conditions; Z86.2 Personal history of diseases of the blood and blood-forming organs and certain disorders involving the immune mechanism; Z86.39 Personal history of other endocrine, nutritional and metabolic disease
CPT/HCPCS: 36415; 80053; 80061; 81003; 82306; 83540; 85025

== ENCOUNTER 2024-02-28 15:03 | Outpatient (REF) | payer BC, SELFPAY | END 2024-02-28 15:04 | disposition home or self-care (01) | LOC: HO.LNP 15:03 | PROVIDERS: PCP Internal Medicine; Visit Provider Surgery | DX: D17.1 Benign lipomatous neoplasm of skin and subcutaneous tissue of trunk (principal) | CPT/HCPCS: 11406; 88304 ==

== ENCOUNTER 2024-02-28 15:03 | Outpatient (AMB) | payer BC, SELFPAY ==
--- NOTE | 2024-02-28 15:05 | MHC.OFFVIS ---
Vital Signs 02/28/24 15:14 Height 4 ft 11 in Weight 146 lb 4 oz BMI 29.5 BP 122/69 Blood Pressure Location Lt brachial Position Sitting Pulse 95 Intake Visit Reasons: Abdominal Mass Intake Note: Patient is seen in office for evaluation and treatment of an abdominal wall mass. 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 Accompanied by: Self / Same As Patient Allergies codeine Allergy (Unknown, Verified 02/28/24 15:13) hives dextromethorphan Allergy (Unknown, Verified 02/28/24 15:13) hives, jumpy legs diphenhydramine [From Benadryl] Allergy (Unknown, Verified 02/28/24 15:13) hives, swelling throat Codeine Phosphate Allergy (Unknown, Uncoded 02/28/24 15:13) hives Benadryl Adverse Reaction (Unknown, Uncoded 02/28/24 15:13) hives , swelling throat Decongestant Adverse Reaction (Unknown, Uncoded 02/28/24 15:13) hives Medication List - Last Reconciled 02/28/24 by David Rich MD cholecalciferol (vitamin D3) 50 mcg PO DAILY epinephrine (EpiPen 2-Marques) 0.3 mg (0.3 mL) IM Q4H PRN ferrous sulfate 325 mg PO DAILY fluconazole 150 mg PO Q3D PRN 2 doses semaglutide 2 mg subcut QWEEK HPI Comments Details: Patient presents with her significant other for evaluation of a right upper abdominal wall soft tissue mass. She has had this many years time. It has gotten quite large and symptomatic. Patient like to have removed. She has no such symptomatic lesions elsewhere.. Chart was reviewed the patient evaluated [facility] Medical History Overweight (BMI 25.0-29.9) History of vitamin D deficiency History of anemia Vitamin D deficiency Hallux valgus (acquired), left foot Subcutaneous nodules Surgical History History of foot surgery Family History Father Arthritis Substance use disorder Mother Skin cancer Fibromyalgia Substance use disorder Maternal Grandmother Fibromyalgia Skin cancer Alzheimer's disease Dementia Maternal Grandfather No problems noted. Paternal Grandfather No problems noted. Maternal Aunt Fibromyalgia Skin cancer Breast cancer Ovarian cancer Brother Substance use disorder Brother Substance use disorder Daughter No problems noted. Social History Housing: House Alcohol intake: never Patient Tobacco Use Status: Former Tobacco user e-Cigarette/Vaping Use: Never Used service: No Current occupational status: employed Cognitive needs: No Hearing needs: No Vision needs: Yes Female Reproductive History Menstrual Age of Menarche: 17 Physical Exam Vital Signs: Last Vital Signs Pulse 95 02/28/24 15:14 BP 122/69 02/28/24 15:14 BMI result Body Mass Index 29.5 GI Other: Right upper quadrant/right infra costal soft tissue mass measuring approximately 5 x 3 cm consistent with a lipoma. Office Procedures Excision Details: Risks, benefits, alternatives of excision of anterior abdominal wall lipoma (5 x 3 cm) were reviewed with the patient included but not limited to bleeding, infection, recurrence, numbness, pain, scarring the patient wished to proceed. All questions answered. After appropriate positioning, patient underwent 1% lidocaine and Betadine prep and transverse incision made over this right upper quadrant soft tissue mass consistent with lipoma. Dissection was carried down were superior and inferior skin flaps were made and uneventfully enucleation of lipoma with dimensions as described above was uneventfully performed. Wound was irrigated, secured hemostasis, and closed using running subcuticular 3-0 Vicryl suture followed by Steri-Strips and sterile dressings. Patient tolerated procedure well. 99070-vdmlb/arms/legs >4cm Procedure code (CPT) selection complete Office Meds lidocaine 1 %-epinephrine 1:100,000 injection solution Performing Provider: David Rich MD Performing Location: [facility] Administered by: David Rich MD on 02/28/24 15:57 Dose Route Admin Location Dispensed Lot Number Expiration Date [facility] [employer] Straightener 20 mL Infiltration 20 mL Assessment & Plan Assessment & Plan (1) Lipoma of abdominal wall: Code(s): D17.1 - Benign lipomatous neoplasm of skin and subcutaneous tissue of trunk Category: Surgical Plan: Patient was been given local instructions including isolated wound periodically, may shower in 2 days leaving Steri-Strips intact, ice to the wound periodically, and no strenuous activities. Patient will see me as directed or p.r.n.. All questions answered. Orders: Orders AMB Excision Today D17.1 - Benign lipomatous neoplasm of skin and subcutaneous tissue of trunk Medications: New lidocaine-epinephrine 1 %-1:100,000 20 mL Infiltration ONCE 30 mL 0RF D17.1 - Benign lipomatous neoplasm of skin and subcutaneous tissue of trunk Coding Level of Care Code New Pt Level 5 (32882) Diagnoses Lipoma of abdominal wall D17.1 CPT Codes Trunk/Arms/Legs - CPT: 55898-wscbu/arms/legs >4cm ([id number])
[2024-02-28 15:14] VITALS: BP 122/69; PULSE 95; BMI 29.5
== END 2024-02-28 16:01 | disposition home or self-care (01) ==
PROVIDERS: PCP Internal Medicine; Visit Provider Surgery
DX: D17.1 Benign lipomatous neoplasm of skin and subcutaneous tissue of trunk (principal)
CPT/HCPCS: 11406; 99204

== ENCOUNTER 2024-03-07 08:59 | Outpatient (AMB) | payer BC, SELFPAY ==
--- NOTE | 2024-03-07 09:01 | MHC.OFFVIS ---
Intake Visit Reasons: s/p excision right abdominal mass Intake Note: Patient here s/p exc on rt abd. Reports incision healing well. Patient c/o: denies oozing, pain, itch. Steri strips fell off. 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 She has no wound issues or complaints. Pathology is benign [facility] Medical History Overweight (BMI 25.0-29.9) History of vitamin D deficiency History of anemia Vitamin D deficiency Hallux valgus (acquired), left foot Subcutaneous nodules Surgical History History of foot surgery Family History Father Arthritis Substance use disorder Mother Skin cancer Fibromyalgia Substance use disorder Maternal Grandmother Fibromyalgia Skin cancer Alzheimer's disease Dementia Maternal Grandfather No problems noted. Paternal Grandfather No problems noted. Maternal Aunt Fibromyalgia Skin cancer Breast cancer Ovarian cancer Brother Substance use disorder Brother Substance use disorder Daughter No problems noted. Social History Housing: House Alcohol intake: never Patient Tobacco Use Status: Former Tobacco user e-Cigarette/Vaping Use: Never Used service: No Current occupational status: employed Cognitive needs: No Hearing needs: No Vision needs: Yes Female Reproductive History Menstrual Age of Menarche: 17 Physical Exam GI Other: Incision clean dry intact healing well Assessment & Plan Assessment & Plan (1) Postop check: Code(s): Z09 - Encounter for follow-up examination after completed treatment for conditions other than malignant neoplasm Category: Surgical Plan Patient has been given local instructions including avoiding strenuous activities for next few weeks time and will otherwise follow-up p.r.n.. All questions answered. Coding Level of Care Code Global (27603) Diagnoses Postop check Z09
== END 2024-03-07 09:08 | disposition home or self-care (01) ==
PROVIDERS: PCP Internal Medicine; Visit Provider Surgery
DX: Z09 Encounter for follow-up examination after completed treatment for conditions other than malignant neoplasm (principal)
CPT/HCPCS: 99024

== ENCOUNTER → 2024-03-07 08:59 | Outpatient (BNVA) | payer BC, SELFPAY | PROVIDERS: PCP Internal Medicine; Visit Provider Surgery ==

== ENCOUNTER → 2024-05-03 08:00 | Outpatient (BNV) | payer BC, SELFPAY | PROVIDERS: PCP Internal Medicine; Visit Provider Internal Medicine | DX: Z12.31 Encounter for screening mammogram for malignant neoplasm of breast (principal) | CPT/HCPCS: 77063; 77067 ==

== ENCOUNTER 2024-05-03 08:19 | Outpatient (REF) | payer BC, SELFPAY ==
--- NOTE | ~2024-05-03 | MM_ITS ---
EXAMINATION: MM SCREENING DIGITAL BREAST TOMOSYNTHESIS, BILATERAL CLINICAL INFORMATION: Screening. Asymptomatic. COMPARISON: Mammography: Comparison is made with available priors TECHNIQUE: Digital breast mammography with tomosynthesis is performed in both the craniocaudal and mediolateral oblique views along with computer-aided detection (CAD). FINDINGS: The breasts are heterogeneously dense, which may obscure small masses (ACR BI-RADS breast composition Category c). There are no significant masses, abnormal calcifications, or other abnormalities. MM/MM tomosynthesis screening BI IMPRESSION: No mammographic evidence of malignancy. ASSESSMENT: BI-RADS BI-RADS 1 - Negative RECOMMENDATION: Routine annual mammography screening. 1 year F/U This examination should not preclude the clinical evaluation of a suspicious palpable abnormality. This patient's information was entered into a reminder system with a target due date for their next mammogram. Electronically signed by: Barbara Reed DO 05/14/2024 02:15 PM EDT
== END 2024-05-03 08:20 | disposition home or self-care (01) ==
LOC: HO.MAMMO 08:19
PROVIDERS: PCP Internal Medicine; Visit Provider Internal Medicine
DX: Z12.31 Encounter for screening mammogram for malignant neoplasm of breast (principal)
CPT/HCPCS: 77063; 77067

== ENCOUNTER 2025-01-07 11:19 | Outpatient (AMB) | payer BC, SELFPAY ==
--- NOTE | 2025-01-07 11:55 | MHC.OFFWIV ---
Intake Vital Signs 01/07/25 11:58 Height 4 ft 11 in Weight 152 lb 8 oz BMI 30.8 BP 94/80 Blood Pressure Location Lt brachial Position Sitting Pulse 80 Pulse Source Pulse Oximeter Temp 98.2 F Temp Source Oral Pulse Oximetry (%) 93 Oxygen Delivery Method Room Air Intake Visit Reasons: EP Pain on RT knee Intake Note: Pt got random shooting pain in rt knee starting tuesday. Patient Tobacco Use Status: Former Tobacco user Allergies codeine Allergy (Unknown, Verified 01/07/25 11:59) hives dextromethorphan Allergy (Unknown, Verified 01/07/25 11:59) hives, jumpy legs diphenhydramine [From Benadryl] Allergy (Unknown, Verified 01/07/25 11:59) hives, swelling throat Codeine Phosphate Allergy (Unknown, Uncoded 03/07/24 09:02) hives Benadryl Adverse Reaction (Unknown, Uncoded 03/07/24 09:02) hives , swelling throat Decongestant Adverse Reaction (Unknown, Uncoded 03/07/24 09:02) hives HPI HPI Comments History of Present Illness Details History of Present Illness - The patient is a 49-year-old female presenting with knee pain. - Symptom onset occurred suddenly on a Tuesday while the patient was walking in a store. - Pain is localized on the side and underneath the knee cap, sometimes accompanied by the knee giving out. - Intensity is described as uncomfortable but not extreme, with no specific injury reported. - The patient denies swelling, redness, warmth, numbness, or tingling. - She denies calf pain, ankle pain, foot pain, trauma or fall. She denies redness or warmth. Physical Exam General: Cooperative, healthy appearing, comfortable, no acute distress and well developed Respiratory: Normal respiratory effort and able to speak in complete sentences. Clear to auscultation bilaterally Cardiovascular: Regular rate and rhythm. Normal S1 and S2 Skin: No rashes or lesions noted. No redness, bruising, or warmth noted. Neuro: Sensation is intact. Extremities: Normal to inspection, no swelling, redness, or warmth. FROM of the right knee. No click noted. No TTP of the right patella, medial or lateral condyle, posterior fossa. TTP of the medial and lateral meniscus. No calf tenderness, Negative Homans noted. FROM of the ankle. Ambulates with a steady gait. Strength is 5/5 on the LE bilaterally. DTR are 1+ on the LE. Patient was informed and verbally consented to the use of an ambient scribe for clinic note documentation during this visit. [facility] Medical History Overweight (BMI 25.0-29.9) History of vitamin D deficiency History of anemia Vitamin D deficiency Hallux valgus (acquired), left foot Subcutaneous nodules Surgical History History of foot surgery Family History Father Arthritis Substance use disorder Mother Skin cancer Fibromyalgia Substance use disorder Maternal Grandmother Fibromyalgia Skin cancer Alzheimer's disease Dementia Maternal Grandfather No problems noted. Paternal Grandfather No problems noted. Maternal Aunt Fibromyalgia Skin cancer Breast cancer Ovarian cancer Brother Substance use disorder Brother Substance use disorder Daughter No problems noted. Social History Housing: House Alcohol intake: never Patient Tobacco Use Status: Former Tobacco user e-Cigarette/Vaping Use: Never Used service: No Current occupational status: employed Cognitive needs: No Hearing needs: No Vision needs: Yes Female Reproductive History Menstrual Age of Menarche: 17 Review of Systems Const All systems reviewed & are unremarkable except as noted in HPI and below Physical Exam Vital Signs: Last Vital Signs Temp 98.2 F 01/07/25 11:58 Pulse 80 01/07/25 11:58 BP 94/80 01/07/25 11:58 Pulse Ox 93 01/07/25 11:58 Oxygen Delivery Method Room Air 01/07/25 11:58 BMI result Body Mass Index 30.8 Assessment & Plan Assessment & Plan (1) Knee pain: Code(s): M25.569 - Pain in unspecified knee Qualifiers: Chronicity: acute Laterality: right Qualified Code(s): M25.561 - Pain in right knee Plan Most likely strain vs ligamentous injury Plan - Proceed with a knee X-ray to rule out internal injuries. - Patient left with out getting the x-ray and said she will return for it another day. - Tylenol or Motrin as needed for the pain. - Provided guidance on symptom management including rest, ice, compression, elevation. - No immediate need for further intervention unless imaging suggests otherwise. Orders: Orders XR knee RT 3V Today M25.569 - Pain in unspecified knee Coding Level of Care Code Est Pt Level 4 (06805) Diagnoses Acute pain of right knee M25.561 Chronicity: acute Laterality: right
[2025-01-07 11:58] VITALS: BP 94/80; PULSE 80; TEMP 36.8; O2SAT 93; BMI 30.8
== END 2025-01-07 13:56 | disposition home or self-care (01) ==
PROVIDERS: PCP Internal Medicine; Visit Provider Physician Assistant Medical
DX: M25.561 Pain in right knee (principal)

== ENCOUNTER 2025-01-07 11:19 | Outpatient (REF) | payer BC, SELFPAY ==
--- NOTE | ~2025-01-07 | XR_ITS ---
EXAMINATION: XR KNEE, RIGHT CLINICAL INFORMATION: M25.569 - Pain in unspecified knee COMPARISON: None available. TECHNIQUE: Four views of the right knee. FINDINGS: No fracture or joint effusion. Alignment is anatomic. Joint spaces are maintained. No abnormal soft tissue calcification. XR/XR knee RT 4V IMPRESSION: Normal right knee. Electronically signed by: Rigo Larios MD 01/07/2025 04:09 PM EDT
== END 2025-01-07 11:20 | disposition home or self-care (01) ==
LOC: HO.HMGCX 11:19
PROVIDERS: PCP Internal Medicine; Visit Provider Physician Assistant Medical
DX: M25.561 Pain in right knee (principal)
CPT/HCPCS: 73564

== ENCOUNTER → 2025-01-07 15:50 | Outpatient (BNV) | payer BC, SELFPAY | PROVIDERS: PCP Internal Medicine; Visit Provider Radiology Diagnostic Radiology | DX: M25.561 Pain in right knee (principal) | CPT/HCPCS: 73564 ==

== ENCOUNTER 2025-01-24 16:17 | Outpatient (AMB) | payer BC, SELFPAY ==
[2025-01-24 16:20] VITALS: BP 90/60; PULSE 85; RESP 16; TEMP 36.7; O2SAT 99; BMI 30.9
--- NOTE | 2025-01-24 16:20 | A.OFFPC_ITS ---
Vital Signs 01/24/25 16:20 Height 4 ft 11 in Weight 153 lb BMI 30.9 BP 90/60 Blood Pressure Location Lt brachial Position Sitting Respiration 16 Pulse 85 Pulse Source Pulse Oximeter Temp 98.0 F Temp Source Oral Pulse Oximetry (%) 99 Oxygen Delivery Method Room Air Intake Visit Reasons: c/o Rt foot side pain: No injury noted Intake Note: Pt is here today c/o Rt foot side pain: No injury noted Allergies codeine Allergy (Unknown, Verified 01/27/25 23:48) hives dextromethorphan Allergy (Unknown, Verified 01/27/25 23:48) hives, jumpy legs diphenhydramine (From Benadryl) Allergy (Unknown, Verified 01/27/25 23:48) hives, swelling throat Codeine Phosphate Allergy (Unknown, Uncoded 01/27/25 23:48) hives Benadryl Adverse Reaction (Unknown, Uncoded 01/27/25 23:48) hives , swelling throat Decongestant Adverse Reaction (Unknown, Uncoded 01/27/25 23:48) hives Medication List - Last Reconciled 01/24/25 by Staci Warren MD cholecalciferol (vitamin D3) 50 mcg PO DAILY epinephrine (EpiPen 2-Marques) 0.3 mg (0.3 mL) IM Q4H PRN ferrous sulfate 325 mg PO DAILY semaglutide 2 mg subcut QWEEK Tobacco use date assessed: 01/24/25 Dental Screening Dental Screen Date: 01/24/25 Did you have a dental visit in the last 12 months?: Yes Did you have a dental problem in the last 6 months where you did not have access to dental care?: No Was dental information given to patient?: Patient has dentist HPI HPI Comments History of Present Illness Details 49-year-old lady here today complaining intermittent episodes of burning/tingling sensation on lateral aspect of right foot.. This has been present now for the last week, with no history of trauma. Patient states that symptoms comes and goes, has not taken and medication. She also has history of anemia, currently on iron supplements. Had a negative Cologuard test done in 2023. Denies episodes of lightheadedness, no chest pain, shortness of breath or palpitations, no abnormal bleeding reported [facility] Medical History Overweight (BMI 25.0-29.9) History of vitamin D deficiency History of anemia Vitamin D deficiency Hallux valgus (acquired), left foot Subcutaneous nodules Surgical History History of foot surgery Family History Father Arthritis Substance use disorder Mother Skin cancer Fibromyalgia Substance use disorder Maternal Grandmother Fibromyalgia Skin cancer Alzheimer's disease Dementia Maternal Grandfather No problems noted. Paternal Grandfather No problems noted. Maternal Aunt Fibromyalgia Skin cancer Breast cancer Ovarian cancer Brother Substance use disorder Brother Substance use disorder Daughter No problems noted. Social History Housing: House Alcohol intake: never Patient Tobacco Use Status: Former Tobacco user e-Cigarette/Vaping Use: Never Used service: No Current occupational status: employed Cognitive needs: No Hearing needs: No Vision needs: Yes Female Reproductive History Menstrual Age of Menarche: 17 Questionnaire PHQ-9 Over the last 2 weeks, how often have you been bothered by any of the following problems? 1. Little interest or pleasure in doing things: not at all 2. Feeling down, depressed, or hopeless: not at all 3. Trouble falling or staying asleep, or sleeping too much: not at all 4. Feeling tired or having little energy: not at all 5. Poor appetite or overeating: not at all 6. Feeling bad about yourself - or that you are a failure or have let yourself or your family down: not at all 7. Trouble concentrating on things, such as reading the newspaper or watching television: not at all 8. Moving or speaking so slowly that other people could have noticed. Or the opposite - being so fidgety or restless that you have been moving around a lot more than usual: not at all 9. Thoughts that you would be better off or of hurting yourself in some way: not at all Total score: 0 Depression Screening Interpretation: Negative Depression Screening Done: Yes 71388 - PHQ-9 Billing: Yes Source: Developed by Drs. Sinai Brunner Kurt Kroenke and colleagues, with an educational mi from [employer]. Thrive Questionnaire Date Thrive assessed: 01/24/25 I am a: Patient What is your living situation today?: I have a steady place to live Within the past 12 months, did the food you bought not last and you didn't have the money to get more?: Never true Within the past 12 months, did you worry whether your food would run out before you got money to buy more?: Never true Do you have trouble paying for medicines?: No Do you have trouble getting transportation to medical appointments?: No Do you have trouble paying your heating and electricity bill?: No Do you have trouble taking care of your child, family member or friend?: No Do you have trouble with day-to-day activities such as bathing, preparing meals, shopping, managing finances, etc.?: No Are you currently unemployed and looking for a job?: No Are you interested in more education?: No Please select the resources that you would like help with: None Currently or been in a relationship where the following occur: I choose not to answer THRIVE Score: 0 AUDIT C Alcohol Use Questionnaire (AUDIT-C) 1. How often do you have a drink containing alcohol?: Monthly or less 2. How many drinks containing alcohol do you have on a typical day when you are drinking?: 1 or 2 3. How often do you have six or more drinks on one occasion?: Never Total Score: 1 BONY-7 AMB Questionnaire BONY-7 Date BONY - 7 assessed: 01/24/25 Feeling nervous, anxious, or on edge: 0 = Not at all Not being able to stop or control worryin = Not at all Worrying too much about different things: 0 = Not at all Trouble relaxin = Not at all Being so restless that it is hard to sit still: 0 = Not at all Becoming easily annoyed or irritable: 0 = Not at all Feeling afraid as if something awful might happen: 0 = Not at all Total BONY-7 score (0-4 normal; 5-9 mild; 10-14 moderate; 15-21 severe): 0 Source: Developed by Sinai Phelps Kurt Kroenke and colleagues, with an educational mi from [employer]. Review of Systems Const All systems reviewed & are unremarkable except as noted in HPI and below Physical exam (Primary Care) Vital Signs: Last Vital Signs Temp 98.0 F 01/24/25 16:20 Pulse 85 01/24/25 16:20 Resp 16 01/24/25 16:20 BP 90/60 01/24/25 16:20 Pulse Ox 99 01/24/25 16:20 Oxygen Delivery Method Room Air 01/24/25 16:20 BMI result Body Mass Index 30.9 Tobacco/Smoking Status: Tobacco use Status Tobacco use date assessed 01/24/25 01/24/25 16:25 Patient Tobacco Use Status Former Tobacco user 01/24/25 16:25 e-Cigarette/Vaping Use Never Used 01/24/25 16:25 PHQ-9: PHQ-9 Score PHQ-9: Total score 0 01/24/25 16:52 Depression Screening Interpretation: Negative Thrive Assessment: Date of Thrive Assessment Date Thrive assessed 01/24/25 01/24/25 16:25 Currently or been in a relationship where the following occur: I choose not to answer Const General: comfortable (Ambulatory with normal gait) and no acute distress Orientation/consciousness: patient oriented x3 Limitations: no limitations Eyes General: appearance normal, both eyes and all related structures Resp Auscultation: clear to auscultation bilaterally Cardio Rate: regular rate Rhythm: regular rhythm Heart sounds: S1 normal heart sound present and S2 normal heart sound present GI Palpation (GI): Soft to palpation, nontender and no guarding Auscultation: normal bowel sounds Skin General skin exam: no rashes or lesions noted Neuro General: patient oriented x3, moves all extremities, Normal light touch and pain sensation and no focal motor deficits Extrem General: Yes full ROM, Yes no joint enlargement, Yes no pedal edema, Yes no calf tenderness, Yes normal gait, No Limp noted and No venous stasis dermatitis Right lower extremity: normal to inspection, full ROM and foot (No gross bone deformity, or tenderness on palpation on lateral aspect foot) Coding Level of Care Code Est Pt Level 4 (86875) Diagnoses History of anemia Z86.2 Right foot pain M79.671 Additional Codes PHQ-9 - 05396 - PHQ-9 Billing: Yes ([id number]) Assessment & Plan Assessment & Plan (1) History of anemia: Code(s): Z86.2 - Personal history of diseases of the blood and blood-forming organs and certain disorders involving the immune mechanism Category: Medical Plan: Ordered a repeat CBC and iron profile (2) Right foot pain: Code(s): M79.671 - Pain in right foot Plan: Likely ligament strain, advised to try massaging diclofenac gel to affected area up to 4 times a day as needed. Notify us if the root of symptoms after a week Orders: Orders Complete Blood Count Auto Diff 01/24/25 Z86.2 - Personal history of diseases of the blood and blood-forming organs and certain disorders involving the immune mechanism IRON PROFILE 01/24/25 Z86.2 - Personal history of diseases of the blood and blood-forming organs and certain disorders involving the immune mechanism
== END 2025-01-24 16:54 | disposition home or self-care (01) ==
PROVIDERS: PCP Internal Medicine; Visit Provider Internal Medicine
DX: Z86.2 Personal history of diseases of the blood and blood-forming organs and certain disorders involving the immune mechanism (principal); M79.671 Pain in right foot

== ENCOUNTER → 2025-01-24 16:17 | Outpatient (BNVA) | payer BC, SELFPAY | PROVIDERS: PCP Internal Medicine; Visit Provider Internal Medicine | DX: M79.671 Pain in right foot (principal); Z86.2 Personal history of diseases of the blood and blood-forming organs and certain disorders involving the immune mechanism | CPT/HCPCS: 96127 ==

== ENCOUNTER 2025-05-28 12:58 | Outpatient (AMB) | payer BC, SELFPAY ==
--- NOTE | 2025-05-28 13:01 | MHC.OFFWIV ---
Intake Vital Signs 05/28/25 13:02 Height 4 ft 11 in Weight 160 lb BMI 32.3 BP 108/62 Blood Pressure Location Lt brachial Position Sitting Pulse 91 Pulse Source Pulse Oximeter Temp 98.2 F Temp Source Oral Pulse Oximetry (%) 97 Oxygen Delivery Method Room Air Intake Visit Reasons: EP Throat, congestion Intake Note: Patient presents with c/o sore throat & sinus congestion since this morning. Patient Tobacco Use Status: Former Tobacco user Allergies codeine Allergy (Unknown, Verified 05/28/25 13:04) hives dextromethorphan Allergy (Unknown, Verified 05/28/25 13:04) hives, jumpy legs diphenhydramine (From Benadryl) Allergy (Unknown, Verified 05/28/25 13:04) hives, swelling throat Decongestant Adverse Reaction (Unknown, Uncoded 05/28/25 13:04) hives Do you need a note to return to daycare/school/sports/work: Yes HPI HPI Comments History of Present Illness Details History - The patient is a 50-year-old female presenting with a sore throat and nasal congestion. - The sore throat began in the middle of the night at approximately 2:00 AM, accompanied by a sensation of swelling and pressure. - There is no history of allergies or fever, but a pressure-like headache is present over the eyes. - The patient has not used decongestants due to allergies and has taken zinc and cough drops for relief. - A COVID test was performed at home and negative. - She denies chills, CP, SOB, abd pain, n/v/d Physical Exam General: Cooperative, healthy appearing, comfortable and no acute distress Orientation/consciousness: Patient oriented x3 Limitations: No limitations Head: Normal to inspection Ears: Hearing grossly normal bilaterally, external ears normal and TM's normal bilaterally Nose: Normal external nose present, normal nares present, and no nasal discharge present. Face and sinus: Sinuses nontender to palpation, but patient reports pressure over the eyes. Mouth: Normal oral and palatal mucosa present and moist mucous membranes noted. Throat: Tonsils normal. Uvula is midline. Posterior oropharynx with erythema and no exudates. Eyes: Appearance normal, both eyes and all related structures Neck: Normal visual inspection, full ROM. No lymphadenopathy noted. Respiratory: Clear to auscultation bilaterally. Normal respiratory effort, able to speak in complete sentences. No respiratory distress, not tachypneic, no tripod positioning and no use of accessory muscles. Cardiovascular: Regular rate and rhythm. Normal S1 and S2 Skin: No rashes or lesions noted Patient was informed and verbally consented to the use of an ambient scribe for clinic note documentation during this visit [facility] Medical History Overweight (BMI 25.0-29.9) History of vitamin D deficiency History of anemia Vitamin D deficiency Hallux valgus (acquired), left foot Subcutaneous nodules Surgical History History of foot surgery Family History Father Arthritis Substance use disorder Mother Skin cancer Fibromyalgia Substance use disorder Maternal Grandmother Fibromyalgia Skin cancer Alzheimer's disease Dementia Maternal Grandfather No problems noted. Paternal Grandfather No problems noted. Maternal Aunt Fibromyalgia Skin cancer Breast cancer Ovarian cancer Brother Substance use disorder Brother Substance use disorder Daughter No problems noted. Social History Housing: House Alcohol intake: never Patient Tobacco Use Status: Former Tobacco user e-Cigarette/Vaping Use: Never Used service: No Current occupational status: employed Cognitive needs: No Hearing needs: No Vision needs: Yes Female Reproductive History Menstrual Age of Menarche: 17 Review of Systems Const All systems reviewed & are unremarkable except as noted in HPI and below Physical Exam Vital Signs: Last Vital Signs Temp 98.2 F 05/28/25 13:02 Pulse 91 05/28/25 13:02 BP 108/62 05/28/25 13:02 Pulse Ox 97 05/28/25 13:02 Oxygen Delivery Method Room Air 05/28/25 13:02 BMI result Body Mass Index 32.3 Results AMB Rapid Strep AMB Rapid Strep Negative Last Edit by Susan Garcia CMA on 05/28/25 13:18 Results Reviewed Results Reviewed: Laboratory Last Values Strep Scn Rapid Clinic Negative 05/28/25 13:11 Assessment & Plan Assessment & Plan (1) Sore throat: Code(s): J02.9 - Acute pharyngitis, unspecified Plan Most likely URI vs strep vs viral illness vs flu vs covid rapid strep is negative plan - Conducted a respiratory panel to rule out infections such as flu and RSV. - Recommended salt water gargles and steam inhalation for symptomatic relief. - Suggested Tylenol or Motrin for pain management. - Advised follow-up if symptoms persist - Recommended steam inhalation for relief. - Noted avoidance of decongestants due to allergies. Orders: Orders AMB Rapid Strep Screen Today Z13.9 - Encounter for screening, unspecified SARS-CoV2/FLU/RSV Today R09.89 - Other specified symptoms and signs involving the circulatory and respiratory systems Coding Level of Care Code Est Pt Level 3 (07408) Diagnoses Sore throat J02.9
[2025-05-28 13:02] VITALS: BP 108/62; PULSE 91; TEMP 36.8; O2SAT 97; BMI 32.3
== END 2025-05-28 14:02 | disposition home or self-care (01) ==
PROVIDERS: PCP Internal Medicine; Visit Provider Physician Assistant Medical
DX: J02.9 Acute pharyngitis, unspecified (principal); Z13.9 Encounter for screening, unspecified

== ENCOUNTER 2025-05-28 12:58 | Outpatient (REF) | payer BC, SELFPAY ==
[2025-05-28 18:45] LABS: Resp Syncy Virus RNA Qual PCR NEGATIVE (Negative); SARS COV2 PCR INHOUSE NEGATIVE (Negative)
== END 2025-05-28 12:59 | disposition home or self-care (01) ==
LOC: HO.LNP 12:58
PROVIDERS: PCP Internal Medicine; Visit Provider Physician Assistant Medical
DX: R09.89 Other specified symptoms and signs involving the circulatory and respiratory systems (principal); J02.9 Acute pharyngitis, unspecified; Z13.89 Encounter for screening for other disorder; Z03.818 Encounter for observation for suspected exposure to other biological agents ruled out
CPT/HCPCS: 87637; 87880

== ENCOUNTER 2025-07-15 14:59 | Outpatient (AMB) | payer BC, SELFPAY ==
--- NOTE | 2025-07-15 15:06 | MHC.PC.OV ---
Vital Signs 07/15/25 15:07 Height 4 ft 11 in Weight 166 lb BMI 33.5 BP 106/60 Blood Pressure Location Rt brachial Position Sitting Respiration 16 Pulse 101 H Pulse Source Pulse Oximeter Temp 98.8 F Temp Source Oral Pulse Oximetry (%) 97 Oxygen Delivery Method Room Air Intake Visit Reasons: PE Intake Note: Pt is here today for her PE: last mammogram 05/03/24, papsmear 01/23/19, cologuard 03/14/24 [employer] Required: No Is last menstrual period known: Yes Last menstrual period: 06/19/25 Allergies codeine Allergy (Unknown, Verified 07/15/25 15:37) hives dextromethorphan Allergy (Unknown, Verified 07/15/25 15:37) hives, jumpy legs diphenhydramine (From Benadryl) Allergy (Unknown, Verified 07/15/25 15:37) hives, swelling throat Decongestant Adverse Reaction (Unknown, Uncoded 07/15/25 15:37) hives Medication List - Last Reconciled 07/15/25 by Staci Warren MD cholecalciferol (vitamin D3) 50 mcg PO DAILY epinephrine (EpiPen 2-Marques) 0.3 mg (0.3 mL) IM Q4H PRN ferrous sulfate 325 mg PO DAILY Tobacco use date assessed: 07/15/25 Dental Screening Dental Screen Date: 07/15/25 Did you have a dental visit in the last 12 months?: Yes Did you have a dental problem in the last 6 months where you did not have access to dental care?: No Was dental information given to patient?: Patient has dentist HPI PE HPI Details 50-year-old lady, with history of anemia, here today for her physical exam. She is overdue for her screening mammogram, last done May 2024, and is due for her cervical cancer screening, with last cervical cancer screening/Pap smear done in 2018. She had a Cologuard testing done for colon cancer screening in 2023 with negative findings. Has been feeling well, except for some pain on an off on lateral aspect of her right foot. No history of trauma. [facility] Medical History Overweight (BMI 25.0-29.9) History of vitamin D deficiency History of anemia Vitamin D deficiency Hallux valgus (acquired), left foot Subcutaneous nodules Surgical History History of foot surgery Family History Father Arthritis Substance use disorder Mother Skin cancer Fibromyalgia Substance use disorder Maternal Grandmother Fibromyalgia Skin cancer Alzheimer's disease Dementia Maternal Grandfather No problems noted. Paternal Grandfather No problems noted. Maternal Aunt Fibromyalgia Skin cancer Breast cancer Ovarian cancer Brother Substance use disorder Brother Substance use disorder Daughter No problems noted. Social History Housing: House Alcohol intake: never Patient Tobacco Use Status: Former Tobacco user e-Cigarette/Vaping Use: Never Used service: No Current occupational status: employed Cognitive needs: No Hearing needs: No Vision needs: Yes Female Reproductive History Menstrual Age of Menarche: 17 Date of last menstrual period: 06/19/25 Questionnaire PHQ-9 Over the last 2 weeks, how often have you been bothered by any of the following problems? 1. Little interest or pleasure in doing things: not at all 2. Feeling down, depressed, or hopeless: not at all 3. Trouble falling or staying asleep, or sleeping too much: not at all 4. Feeling tired or having little energy: not at all 5. Poor appetite or overeating: not at all 6. Feeling bad about yourself - or that you are a failure or have let yourself or your family down: not at all 7. Trouble concentrating on things, such as reading the newspaper or watching television: not at all 8. Moving or speaking so slowly that other people could have noticed. Or the opposite - being so fidgety or restless that you have been moving around a lot more than usual: not at all 9. Thoughts that you would be better off or of hurting yourself in some way: not at all Total score: 0 Depression Screening Interpretation: Negative Depression Screening Done: Yes Source: Developed by Drs. Anthony Martins, Sinai Costello, Huber Aleman and colleagues, with an educational mi from [employer]. Thrive Questionnaire Date Thrive assessed: 01/24/25 I am a: Patient What is your living situation today?: I have a steady place to live Within the past 12 months, did the food you bought not last and you didn't have the money to get more?: Never true Within the past 12 months, did you worry whether your food would run out before you got money to buy more?: Never true Do you have trouble paying for medicines?: No Do you have trouble getting transportation to medical appointments?: No Do you have trouble paying your heating and electricity bill?: No Do you have trouble taking care of your child, family member or friend?: No Do you have trouble with day-to-day activities such as bathing, preparing meals, shopping, managing finances, etc.?: No Are you currently unemployed and looking for a job?: No Are you interested in more education?: No Please select the resources that you would like help with: None Currently or been in a relationship where the following occur: I choose not to answer THRIVE Score: 0 AUDIT C Alcohol Use Questionnaire (AUDIT-C) 1. How often do you have a drink containing alcohol?: Monthly or less 2. How many drinks containing alcohol do you have on a typical day when you are drinking?: 1 or 2 3. How often do you have six or more drinks on one occasion?: Never Total Score: 1 BONY-7 AMB Questionnaire BONY-7 Date BONY - 7 assessed: 01/24/25 Feeling nervous, anxious, or on edge: 0 = Not at all Not being able to stop or control worryin = Not at all Worrying too much about different things: 0 = Not at all Trouble relaxin = Not at all Being so restless that it is hard to sit still: 0 = Not at all Becoming easily annoyed or irritable: 0 = Not at all Feeling afraid as if something awful might happen: 0 = Not at all Total BONY-7 score (0-4 normal; 5-9 mild; 10-14 moderate; 15-21 severe): 0 Source: Developed by Drs. Anthony Martins, Sinai Costello, Huber Aleman and colleagues, with an educational mi from [employer]. Review of Systems Const Reports no additional complaints Eyes Reports no additional complaints ENT Reports no additional complaints Card Denies chest pain, Denies irregular heart rhythm and Denies lightheadedness Resp Reports no additional complaints GI Denies abdominal pain, Denies melena, Denies bloating, Denies hematochezia, Denies change in bowel habits and Denies heartburn Details: Heavy menstrual bleed, last 3-5 days Musc Reports no additional complaints Skin/Breast Denies breast swelling, Denies breast pain, Denies breast mass and Denies rash Neuro Reports no additional complaints Psych Reports no additional complaints Endo Reports no additional complaints Evaristo/Lymph Reports no additional complaints Aller/Immun Reports no additional complaints Physical exam (Primary Care) Vital Signs: Last Vital Signs Temp 98.8 F 07/15/25 15:07 Pulse 101 H 07/15/25 15:07 Resp 16 07/15/25 15:07 BP 106/60 07/15/25 15:07 Pulse Ox 97 07/15/25 15:07 Oxygen Delivery Method Room Air 07/15/25 15:07 BMI result Body Mass Index 33.5 Tobacco/Smoking Status: Tobacco use Status Tobacco use date assessed 07/15/25 07/15/25 15:11 Patient Tobacco Use Status Former Tobacco user 07/15/25 15:06 e-Cigarette/Vaping Use Never Used 07/15/25 15:06 PHQ-9: PHQ-9 Score PHQ-9: Total score 0 07/19/25 03:33 Depression Screening Interpretation: Negative Thrive Assessment: Date of Thrive Assessment Date Thrive assessed 01/24/25 07/15/25 15:06 Currently or been in a relationship where the following occur: I choose not to answer Const General: no acute distress Orientation/consciousness: patient oriented x3 Limitations: no limitations [facility] Head: Yes normocephalic Ears: external ears normal General nose exam: Normal external nose present Face and sinus: Yes face symmetric Mouth: Normal oral and palatal mucosa present and moist mucous membranes Eyes General: appearance normal, both eyes and all related structures Neck Neck: Yes full ROM, Yes no lymphadenopathy and Yes supple Thyroid: Thyroid normal (Nonpalpable) Chest Breast/axilla palpation: normal palpation of the breasts Resp Auscultation: clear to auscultation bilaterally Cardio Rate: regular rate Rhythm: regular rhythm Heart sounds: S1 normal heart sound present and S2 normal heart sound present GI Palpation (GI): Soft to palpation, nontender and no guarding Auscultation: normal bowel sounds General: Yes no CVA tenderness Back/Spine/Pelvis Back: no CVA tenderness Skin General skin exam: no rashes or lesions noted Neuro General: patient oriented x3, moves all extremities, Normal light touch and pain sensation and no focal motor deficits Extrem General: Yes full ROM, Yes no joint enlargement, Yes no pedal edema and Yes normal gait Right lower extremity: normal to inspection and full ROM Psych Appearance: grossly normal and well kempt Mental Status: mental status grossly normal Speech and movement: Normal speech and movement present Affect: normal affect Coding Level of Care Code Est Pt Prev Care 40-64y(20455) Diagnoses Annual visit for general adult medical examination with abnormal findings Z00.01 Right foot pain M79.671 History of anemia Z86.2 History of vitamin D deficiency Z86.39 Assessment & Plan Assessment & Plan (1) Annual visit for general adult medical examination with abnormal findings: Code(s): Z00.01 - Encounter for general adult medical examination with abnormal findings Plan: Will check appropriate labs. Recommended dental visit every 6 months and regular eye exams, at least every 2 years. Take adequate calcium in diet and vitamin-D 3 at 2000 IU per cap once a day, in addition to weight-bearing exercises to help maintain good muscle tone and weight control. Instructed to do self-breast exam, and continue to get yearly mammogram, reminded to schedule an appointment with her OB for routine Pap and pelvic exam, which is now due. Up-to-date with her colon cancer screening, last Cologuard done in 2023 came back with negative findings. Up-to-date with her Tdap but does not want to get any further vaccines (2) Right foot pain: Code(s): M79.671 - Pain in right foot Plan: Referral to podiatry ordered, requesting to see her Dr. Rand, who she has seen in the past (3) History of anemia: Code(s): Z86.2 - Personal history of diseases of the blood and blood-forming organs and certain disorders involving the immune mechanism Category: Medical Plan: Will check hemoglobin and hematocrit level (4) History of vitamin D deficiency: Code(s): Z86.39 - Personal history of other endocrine, nutritional and metabolic disease Category: Medical Plan: Will check vitamin-D level , currently on vitamin D3 supplement 2000 units daily Orders: Orders Glucose Fasting 07/15/25 E66.3 - Overweight, Z00.01 - Encounter for general adult medical examination with abnormal findings, Z13.1 - Encounter for screening for diabetes mellitus, Z13.220 - Encounter for screening for lipoid disorders, Z86.2 - Personal history of diseases of the blood and blood-forming organs and certain disorders involving the immune mechanism, Z86.39 - Personal history of other endocrine, nutritional and metabolic disease Lipid Panel 07/15/25 E66.3 - Overweight, Z00.01 - Encounter for general adult medical examination with abnormal findings, Z13.1 - Encounter for screening for diabetes mellitus, Z13.220 - Encounter for screening for lipoid disorders, Z86.2 - Personal history of diseases of the blood and blood-forming organs and certain disorders involving the immune mechanism, Z86.39 - Personal history of other endocrine, nutritional and metabolic disease Vitamin D 25-OH Total 07/15/25 E66.3 - Overweight, Z00.01 - Encounter for general adult medical examination with abnormal findings, Z13.1 - Encounter for screening for diabetes mellitus, Z13.220 - Encounter for screening for lipoid disorders, Z86.2 - Personal history of diseases of the blood and blood-forming organs and certain disorders involving the immune mechanism, Z86.39 - Personal history of other endocrine, nutritional and metabolic disease Hemoglobin and Hematocrit 07/15/25 E66.3 - Overweight, Z00.01 - Encounter for general adult medical examination with abnormal findings, Z13.1 - Encounter for screening for diabetes mellitus, Z13.220 - Encounter for screening for lipoid disorders, Z86.2 - Personal history of diseases of the blood and blood-forming organs and certain disorders involving the immune mechanism, Z86.39 - Personal history of other endocrine, nutritional and metabolic disease Referrals Podiatry Referral M79.671 - Pain in right foot
[2025-07-15 15:07] VITALS: BP 106/60; PULSE 101; RESP 16; TEMP 37.1; O2SAT 97; BMI 33.5
== END 2025-07-15 16:37 | disposition home or self-care (01) ==
LOC: HO.HMCC 14:59
PROVIDERS: Visit Provider Internal Medicine
DX: Z00.01 Encounter for general adult medical examination with abnormal findings (principal); M79.671 Pain in right foot; Z86.2 Personal history of diseases of the blood and blood-forming organs and certain disorders involving the immune mechanism; Z86.39 Personal history of other endocrine, nutritional and metabolic disease